=== PATIENT | male | born 1950 | race Caucasian/White ===

== ENCOUNTER → 2023-07-06 | Outpatient (CLI) | payer MEDICARE ==
[2023-07-06 16:58] LABS: INR 0.9 (<1.2); Partial Thromboplastin Time 25.4 sec (22.0-30.0)
[2023-07-07 03:23] LABS: HCT 50.9 % (39.6-50.0); HGB 16.2 g/dL (13.0-17.0); MCH 29.9 pg (27.0-32.0); MCHC 31.8 g/dL (32.0-37.0); MCV 94.1 FL (80.0-97.0); Mean Platelet Volume 10.7 FL (9.5-12.2); NRBC Per 100 WBC 0 X 10*3/uL (0.00-0.01); Platelet Count 219 X 10*3/uL (140-440); RBC 5.41 X 10*6/uL (4.40-5.60); RDW 13.4 % (11.5-14.5); WBC 7.07 X 10*3/uL (4.50-10.00)
[2023-07-07 03:37] LABS: ALT 27 U/L (10-49); AST 23 U/L (14-35); Albumin 4.6 g/dL (3.8-4.9); Albumin/Globulin Ratio 1.84 Ratio (1.60-3.17); Alkaline Phosphatase 78 U/L (41-126); BUN/Creat Ratio 15.44 Ratio (12.00-20.00); Blood Urea Nitrogen 13.9 mg/dL (9.0-27.0); Calcium 9.3 mg/dL (8.7-10.3); Carbon Dioxide 24.4 mmol/L (21.6-31.8); Chloride 105 mmol/L (96-109); Globulin 2.5 g/dL (1.6-3.3); Glucose 75 mg/dL (70-110); Potassium 4.4 mmol/L (3.5-5.5); Sodium 142 mmol/L (135-145); Total Bilirubin 0.7 mg/dL (0.3-1.2); Total Protein 7.1 g/dL (6.2-8.2)
== END | disposition home or self-care (01) ==
LOC: LABPAT 16:01
PROVIDERS: ATTEND Orthopaedic Surgery
DX: Z01.818 Encounter for other preprocedural examination (principal); M17.12 Unilateral primary osteoarthritis, left knee; E11.9 Type 2 diabetes mellitus without complications; Z22.322 Carrier or suspected carrier of Methicillin resistant Staphylococcus aureus
CPT/HCPCS: 36415; 80053; 83036; 85027; 85610; 85730; 87070; 93005

== ENCOUNTER 2023-07-30 05:42 | Day surgery (SDC) | payer MEDICARE ==
[2023-07-29 15:17] VITALS: BMI 39.5
[~2023-07-30 05:42] MED LIST: LIDOCAINE 1% (10MG/ML) FOR IV START INTRADERMA PRN; Pre Op ABX Message 1 EACH MISC MISCELLANE ONE
[2023-07-30] MEDS ORDERED: TRANEXAMIC 1,000 MG/100ML-NACL 1,000 MG in SALINE 1 100ML.BAG IV PRN (06:00)
[2023-07-30] MEDS ORDERED: TRANEXAMIC 1,000 MG/100ML-NACL 1,000 MG in SALINE 1 100ML.BAG IVPB PRN (06:00)
[2023-07-30] MEDS: DOCUSATE 100 MG CAP PO PRN (06:35)
[2023-07-30] MEDS: oxyCODONE ER 10 MG TAB.ER.12H PO PRN (06:35)
[2023-07-30] MEDS: LACTATED RINGERS 1,000 ML IV SCH ×2 (06:48→15:11)
[2023-07-30] MEDS: KETOROLAC 15 MG/ML 1 ML VIAL IVP PRN (06:49)
[2023-07-30] MEDS: FAMOTIDINE 20 MG/2 ML VIAL IVP PRN (06:49)
[2023-07-30] MEDS: DEXAMETHASONE SOD PHOSPHATE 10 MG/ML 1 ML VIAL IV PRN (06:50)
[2023-07-30] MEDS: ONDANSETRON 4 MG/2 ML VIAL IVP PRN ×2 (06:50→15:37)
[2023-07-30] MEDS: MIDAZOLAM 2 MG/2 ML VIAL IV PRN (06:58)
[2023-07-30] MEDS ORDERED: HYDROmorphone 0.5 MG/0.5 ML SYRINGE IVP PRN ×4 (07:00→10:54)
[2023-07-30] MEDS ORDERED: fentaNYL (PF) 50 MCG/ML 2 ML AMP IV PRN (07:00)
[2023-07-30] MEDS: ACETAMINOPHEN TAB 500 MG TAB PO PRN (07:24)
[2023-07-30] MEDS: IV FLUID CONTINUATION 1,000 ML IV ONE ×2 (07:30→15:12)
[2023-07-30] MEDS ORDERED: ROPIVACAINE 5 MG/ML 30 ML VIAL ONE (07:49)
[2023-07-30] MEDS ORDERED: SUCCINYLCHOLINE CHLORIDE 200 MG/10 ML VIAL IV ONE (07:49)
[2023-07-30] MEDS ORDERED: DEXAMETHASONE SOD PHOSPHATE 4 MG/ML 1 ML VIAL ONE (07:49)
[2023-07-30] MEDS ORDERED: MIDAZOLAM 2 MG/2 ML VIAL ONE (07:49)
[2023-07-30] MEDS ORDERED: LIDOCAINE 1% INJ 10MG/ML (20 ML MDV) ONE (07:49)
[2023-07-30] MEDS ORDERED: PROPOFOL 10 MG/ML 20 ML VIAL IV ONE (07:49)
[2023-07-30] MEDS ORDERED: fentaNYL (PF) 50 MCG/ML 2 ML AMP ONE (07:49)
[2023-07-30] MEDS ORDERED: NEOSTIGMINE 1 MG/ML 10 ML VIAL ONE (07:49)
[2023-07-30] MEDS ORDERED: SODIUM CHLORIDE 0.9% (PF) 10 ML VIAL ONE (07:49)
[2023-07-30] MEDS ORDERED: TRANEXAMIC 1,000 MG/100ML-NACL PREMIX BAG ONE (07:49)
[2023-07-30] MEDS ORDERED: GLYCOPYRROLATE 0.2 MG/ML 2 ML VIAL ONE (07:49)
[2023-07-30] MEDS ORDERED: ROCURONIUM 10 MG/ML (5 ML VIAL) IV ONE (07:49)
[2023-07-30] MEDS: ROPIVACAINE/EPI/CLONIDINE/KET 50 ML SYRINGE MISCELLANE PRN (08:25)
--- NOTE | 2023-07-30 09:52 | P.OP ---
Date of Procedure: 07/30/23 Preoperative Diagnosis: 1. severe left knee osteoarthritis Postoperative Diagnosis: same Procedure(s) Performed: 1. Left total knee arthroplasty 2. Computer assisted musculoskeletal navigation using CT/MRI images Implants: 1. [place] [employer] CR Femur Size #7 2. [place] [employer] [place] Tibial Base Size #6 3. [place] [employer] CS/PS poly Size #6, 9-mm 4. [place] [employer] all poly patella, Size #35 Anesthesia: ALBERTINA, regional Surgeon: Derian Brandt Lining Mechanic #1: Christiano Antony Lining Mechanic #2: Yadira Ramirez IV fluids (ml): 1,000 Urine output (ml): 100 Pathology: none sent Condition: stable Disposition: PACU Indications for Procedure: the patient is a very pleasant 72-year-old male who I been seeing since February with severe left knee pain. His x-rays showed moderate arthritis but due to the severity of his pain an MRI was obtained. The MRI showed a displaced meniscus tear and severe cartilage loss in the medial femoral condyle with a large effusion and ultimately the loose bodies. Initially the patient requested an arthroscopy due to the acute onset of pain and meniscus tear. Due to the condition of the cartilage on the medial femoral condyle, the patient's age, and the patient's BMI of 38.5 by recommendation was that a total knee replacement would be more predictable for pain relief. After careful consideration the patient agreed to proceed with a total knee replacement. I met with the patient preoperatively in the office setting and discussed treatment of their symptomatic knee arthritis. They failed a long course of nonsurgical treatment and elected to proceed with an elective total knee replacement. I discussed the potential risks and complications at length and gave them ample time to ask questions. Risks discussed included: risks from anesthesia, superficial site surgical infection, acute and/or chronic periprosthetic joint infection, delayed wound healing, drainage, wound necrosis, instability, stiffness, stiffness requiring manipulation and/or revision surgery, damage to local blood vessels or nerves, aseptic loosening of the implants, extensor mechanism issues including disruption, patellar maltracking, avascular necrosis etc., continued or worsened knee pain, generalized dissatisfaction with surgical outcome, need for revision surgery, an inability to regain preinjury level of function, DVT, PE, other medical complications, and possibly loss of life or limb. The patient voiced their understanding that while these are the most common complications other less common complications are possible. They provided both their verbal and written consent to go forward with surgery. Operative Findings: There was severe full-thickness cartilage loss on the medial femoral condyle with exposed subchondral bone and multiple loose cartilaginous bodies within the joint. There was a large clear effusion. There was moderate cartilage loss in the patellofemoral and lateral compartments. Description of Procedure: The patient was identified in preoperative holding and the correct operative extremity was verified and marked with a marker. I reviewed the consent form with the patient at length. All of their questions were answered. The patient was given a block by anesthesia. They were then brought back to the operating room. They were transferred onto the operating room table where a general anesthetic, preoperative antibiotics, and tranexamic acid were administered by anesthesia. A tourniquet was applied to the proximal aspect of the operative extremity. The contralateral extremity was padded under the heel and secured to the operating room table with a nonsterile blue towel and tape. The ipsilateral arm was carefully draped across the patient's chest and secured with a pillow and foam. A post was applied over the lateral aspect of the ipsilateral thigh and a bolster was placed under the ipsilateral foot. I verified that the operative extremity was stable and the knee was flexed to 90. The operative extremity was then placed in a leg brown, nonsterile drapes were applied, and the extremity was prepped and draped sterilely in the standard sterile fashion. Prior to starting surgery timeout was performed identifying the correct patient, operative extremity, and procedure. The leg was then elevated, exsanguinated with an Esmarch bandage, and the tourniquet was inflated. An anterior midline incision was made sharply with a scalpel. Once I had dissected deep to the superficial fascial layer medial and lateral flaps were elevated. A medial parapatellar arthrotomy was created. Upon opening the knee joint there were diffuse arthritic changes in all 3 compartments. The anterior horn of the medial meniscus were sharply released and a medial release was performed around the posterior medial corner of the knee to facilitate retractor placement. The fat pad was excised with electrocautery. The patella was found to be severely arthritic and a provisional cut was made with a sagittal saw to facilitate mobilization of the extensor mechanism during the procedure. Remnants of the ACL and PCL were then excised from the notch. 4 mm pins were then placed within the incision in the medial distal femur and proximal tibia. Arrays were applied to the pins and I verified they were completely tightened. The knee was then registered with the [employer] robot and manipulations in implant position were made to balance the knee and opitmize implant position. Using the José Miguel robotic saw all cuts were made in accordance with our plan. After all bony fragments had been removed the cuts were verified with the planar probe. The tibia was then subluxed forward and sized. The knee was brought into flexion and a lamina human resources services specialist was placed to allow removal of the meniscal remnants both medially and laterally as well as posterior osteophytes. Local anesthetic was then infiltrated around the joint capsule. Trial implants were then placed within the knee. Range of motion and collateral ligament tension was then evaluated. Adjustments in implant size and position were then made accordingly. Once the knee was felt to be appropriately balanced the José Miguel pins were removed. The patella was then recut, sized, and punched. A trial patellar button was then placed. With the trial components in place, the patella tracked midline. The femur was then drilled and the trial component removed. The trial tibial component was then appropriately rotated, pinned, and prepared for the keel. All trial components were then removed from the knee. The knee was thoroughly irrigated with pulsatile lavage. Cement was prepared via vacuum mixing in a bowl on the back table. I then hand pressurized cement into the femur and tibia and placed the implants beginning with the tibial base tray and poly liner, femoral component, and finally the patellar button. All extruded cement was removed including from the pin sites. Once the cement had hardened the knee was evaluated one final time with the final polyethylene liner in place. The knee had full extension and flexion and felt stable to varus and valgus stress throughout the arc of motion. The tourniquet was released and with the tourniquet down the patella tracked midline. All bleeders were controlled with electrocautery. The knee was then soaked for 3 minutes with a dilute Betadine soak. The knee was thoroughly irrigated using 3 L of sterile saline and pulsatile lavage. The extensor mechanism was then reapproximated using pop off Vicryl sutures followed by a running barbed suture. The knee was then closed in layers with a 0 strata fix for the deep fascial layer, 2-0 strata fix for the superficial subcutaneous layer and Monocryl and Steri-Strips for the skin. A sterile dressing was applied. I verified that all instrument, sponge, and sharp counts were correct. The patient was then transferred off the operating room table, extubated, and brought to recovery having tolerated the procedure well. Christiano Antony PA-C was required as a skilled food and beverage assistant due to the complexity of surgery for patient positioning, draping, exposure, closure of wound, and application of dressing. PLAN: The patient can weight-bear as tolerated on the operative extremity. DVT prophylaxis with aspirin 81 mg twice a day based on preoperative risk stratification. Internal medicine for perioperative medical management. 2 doses of post-operative antibiotics. Physical therapy for gait training. Follow-up in the office in 2 weeks for wound check and x-rays of the knee including an AP and lateral.
--- NOTE | 2023-07-30 10:03 | P.ANPRN ---
Procedure Note - Anesthesia - Nerve Block Performed Left Adductor Canal Single Time Out Performed: Yes ([id number]) Date of Procedure: 07/30/23 Location of Patient: PreOp Indication: Acute Post-Operative Pain, Analgesia, Dx/Pain Location (Left Knee), Requested by Surgeon Specifically requested for management of pain by Dr.: Derian Brandt Sedation Type: Sedate with meaningful contact maintained Preparation: Sterile Prep Position: Supine Catheter: None Needle Types: Pajunk Needle Gauge: 21 Ultrasound used to visualize needle placement: Yes Ultrasound used to observe medication spread: Yes Injectate: 0.5% Ropivacaine (see comment for volume) (20 cc + 10 cc of Normal saline + 4mg of decadron) Blood Aspirated: No Pain Paresthesia on Injection Noted: No Resistance on Injection: Normal Image Stored and Saved: Yes Events: Uneventful and Well Tolerated Left iPack Single Time Out Performed: Yes Location of Patient: PreOp Indication: Acute Post-Operative Pain, Analgesia, Dx/Pain Location, Requested by Surgeon Specifically requested for management of pain by DrTrista: Derian Brandt Sedation Type: Sedate with meaningful contact maintained Preparation: Sterile Prep Position: Right Lateral Catheter: None Needle Types: Pajunk Needle Gauge: 21 Ultrasound used to visualize needle placement: Yes Ultrasound used to observe medication spread: Yes Injectate: 0.5% Ropivacaine (see comment for volume) (20 cc + 10 cc of Normal saline) Blood Aspirated: No Pain Paresthesia on Injection Noted: No Resistance on Injection: Normal Image Stored and Saved: Yes Events: Uneventful and Well Tolerated
[2023-07-30] MEDS ORDERED: MAGNESIUM HYDROXIDE 2,400 MG/30 ML CUP PO PRN (10:54)
[2023-07-30] MEDS ORDERED: HYDROcodone/APAP 7.5-325MG 1 EACH TAB PO PRN (10:54)
[2023-07-30] MEDS ORDERED: NALOXONE 0.4 MG/ML 1 ML VIAL IV PRN (10:54)
[2023-07-30] MEDS ORDERED: bisacodyL 10 MG SUPP RECTAL PRN (10:54)
[2023-07-30] MEDS ORDERED: NA PHOS,M-B/NA PHOS,DI-BA 133 ML ENEMA RECTAL PRN (10:54)
--- NOTE | 2023-07-30 14:37 | XR ---
EXAMINATION TYPE: XR knee limited 2 views LT DATE OF EXAM: 07/30/2023 COMPARISON: NONE CLINICAL INDICATION: Male, 72 years old with history of Evaluation for Postop abnormality and alignme nt; FINDINGS: Images show placement of left total knee arthroplasty. Distal femoral and proximal tibial components of the prosthesis are well seated without periprosthetic fracture. Alignment grossly anatomic. Anteri or soft tissue swelling with scattered soft tissue air as well as some intra-articular air related to recent operation. IMPRESSION: Uncomplicated postoperative appearance left total knee arthroplasty.
[2023-07-30] MEDS: DEXAMETHASONE SOD PHOSPHATE 4 MG/ML 1 ML VIAL IV ONE (16:09)
[2023-07-30] MEDS: ONDANSETRON 4 MG/2 ML VIAL IVP ONE (16:09)
[2023-07-30] MEDS: SENNOSIDES-DOCUSATE SODIUM 1 EACH TAB PO SCH (20:49)
[2023-07-30] MEDS: ASPIRIN 81 MG PO SCH (20:49)
--- NOTE | 2023-07-30 21:12 | P.CONS ---
History of Present Illness - Reason for Consult Consult date: 07/30/23 Medical management Requesting physician: Derian Brandt - Chief Complaint Left knee surgery - History of Present Illness This is a pleasant 72-year-old patient who follows with Dr. DE LA CRUZ. Chronic stable medical conditions. Obstructive sleep apnea uses CPAP, arthritis and some other joints. Patient has undergone left total knee arthroplasty having failed outpatient conservative management. Has postoperatively pain controlled. No nausea vomiting. Patient also has a history of esophageal stricture for which she takes peppermint oil. With relief from the same. 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 . Ex-smoker. Physical examination: VITAL SIGNS: 97.4, 67, 16, 159 x 88, 95% on room air GENERAL: BMI 38.5, reclining bed awake comfortable. EYES: Pupils equal. Conjunctiva rachid l. HEENT: External appearance of nose and ears normal, oral cavity grossly normal. NECK: JVD not raised; masses not palpable. HEART: First and second heart sounds are normal; no edema. LUNGS: Respiratory rate normal; some decrease in breath sounds. ABDOMEN: Soft, nontender, liver spleen not palpable, no masses palpable. PSYCH: Alert and oriented x3; mood and affect rachid l. MUSCULOSKELETAL:No Clubbing/cyanosis;muscles-grossly intact. Dressing over the left knee incision site NEUROLOGICAL: Cranial nerves grossly intact; no facial asymmetry, power and sensation grossly intact. LYMPHATICS: No lymph nodes palpable in the axilla and neck INVESTIGATIONS, reviewed in the clinical context: July 06, 2023: White count 7 hemoglobin 16.2 platelets 219 sodium 142 potassium 4.4 creatinine 0.9 hemoglobin A1c 6 Assessment plan -Left total knee arthroplasty Aspirin for DVT prophylaxis. Cefazolin for infection prophylaxis. Pain control -Primary osteoarthritis Tylenol as needed -Obstructive sleep apnea uses CPAP -Esophageal stricture for which patient uses peppermint oil. -Obesity BMI 38.5 Weight loss measures Care was discussed with the patient. Questions answered. Thank you Dr. 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 no problems with prior blood transfusion Smoking Status: Former smoker - Past Family History Mother Family Medical History: CVA/TIA Medications and Allergies Home Medications Medication Instructions Recorded Confirmed Type Acetaminophen [Tylenol Extra 500 - 1,000 mg PO Q6H PRN 07/29/23 07/30/23 History Strength] Fluticasone Nasal [place] [Flonase 1 spray EA NOSTRIL DAILY PRN 07/29/23 07/30/23 History Nasal [place]] Sulindac [Clinoril] 200 mg PO BID PRN 07/29/23 07/30/23 History Aspirin 81 mg PO BID #60 tab 07/30/23 Rx Diclofenac Sodium [Voltaren] 75 mg PO BID #60 tab 07/30/23 Rx Docusate [Colace] 100 mg PO BID #60 capsule 07/30/23 Rx HYDROcodone/APAP 7.5-325MG [[place] 1 each PO Q6HR PRN #32 tab 07/30/23 Rx 7.5-325] Omeprazole 20 mg PO DAILY #30 tab 07/30/23 Rx Ondansetron [Zofran] 4 mg PO Q6HR PRN #30 tab 07/30/23 Rx Allergies Allergy/AdvReac Type Severity Reaction Status Date / Time doxycycline Allergy facial Verified 07/30/23 06:31 swelling Physical Exam Vitals: Vital Signs Temp Pulse Resp BP Pulse Ox 07/30/23 15:46 97.4 F L 67 159/88 95 07/30/23 15:00 77 16 144/75 96 07/30/23 14:30 55 L 16 136/73 94 L 07/30/23 13:30 58 L 16 141/83 97 07/30/23 13:00 64 16 139/70 94 L 07/30/23 12:30 97.2 F L 66 16 124/78 94 L 07/30/23 12:00 75 16 126/73 95 07/30/23 11:34 81 16 135/75 97 07/30/23 11:18 84 16 149/83 96 07/30/23 11:03 82 16 156/77 97 07/30/23 10:48 97.2 F L 91 16 158/72 99 07/30/23 07:15 68 18 128/56 97 07/30/23 06:40 98.0 F 74 18 150/83 96 Intake and Output 07/30/23 07/30/23 07/30/23 06:59 14:59 22:59 Intake Total 750 780 Output Total 100 Balance 650 780 Intake: IV 750 300 Oral 480 Output: Estimated Blood Loss 100 Other: Weight 115 kg 115 kg 115 kg
[2023-07-30] MEDS: CALCIUM CARBONATE 500 MG CHEWABLE PO STA (23:31)
[2023-07-31] MEDS: HYDROcodone/APAP 5-325MG 1 EACH TAB PO PRN (02:09)
[2023-07-31 02:43] VITALS: RESP 18
--- NOTE | 2023-07-31 06:50 | P.DS ---
Providers Date of admission: 07/30/2023 Attending physician: Derian Brandt Consults: 07/30/23 11:03 Consult Physician Routine Consulting Provider: Javan Elias Consult Reason/Comments: Medical management Do you want consulting provider notified?: Yes [facility] Course: The patient is very pleasant 72-year-old male who was admitted and underwent a l eft total knee replacement yesterday.Following an uncomplicated surgery and was transferred to the orthopedic floor. He was seen by internal medicine. He received 2 doses postoperative antibiotics. He was started on aspirin for DVT prophylaxis. He was seen on postoperative day #1 and was doing well. His dressing was intact. Femoral and sciatic nerve function were intact. There is mild swelling. He worked with physical therapy and ultimately was cleared for discharge home. Plan - Discharge Summary Discharge Rx Participant: No New Discharge Prescriptions: New Aspirin 81 mg PO BID #60 tab HYDROcodone/APAP 7.5-325MG [[place] 7.5-325] 1 each PO Q6HR PRN #32 tab PRN Reason: Pain Diclofenac Sodium [Voltaren] 75 mg PO BID #60 tab Ondansetron [Zofran] 4 mg PO Q6HR PRN #30 tab PRN Reason: Nausea Docusate [Colace] 100 mg PO BID #60 capsule Omeprazole 20 mg PO DAILY #30 tab No Action Sulindac [[place]] 200 mg PO BID PRN PRN Reason: Pain Acetaminophen [Tylenol Extra Strength] 500 - 1,000 mg PO Q6H PRN PRN Reason: Pain Fluticasone Nasal [place] [Flonase Nasal [place]] 1 spray EA NOSTRIL DAILY PRN PRN Reason: allergies Discharge Medication List Acetaminophen [Tylenol Extra Strength] 500 - 1,000 mg PO Q6H PRN 07/29/23 [Hist ory] Fluticasone Nasal [place] [Flonase Nasal [place]] 1 spray EA NOSTRIL DAILY PRN 07/29/23 [History] Sulindac [[place]] 200 mg PO BID PRN 07/29/23 [History] Aspirin 81 mg PO BID #60 tab 07/30/23 [Rx] Diclofenac Sodium [Voltaren] 75 mg PO BID #60 tab 07/30/23 [Rx] Docusate [Colace] 100 mg PO BID #60 capsule 07/30/23 [Rx] HYDROcodone/APAP 7.5-325MG [[place] 7.5-325] 1 each PO Q6HR PRN #32 tab 07/30/23 [Rx] Omeprazole 20 mg PO DAILY #30 tab 07/30/23 [Rx] Ondansetron [Zofran] 4 mg PO Q6HR PRN #30 tab 07/30/23 [Rx] Follow up Appointment(s)/Referral(s): Derian Brandt MD [Medical Doctor] - 2 Weeks Activity/Diet/Wound Care/Special Instructions: 1. Weight-bear as tolerated on your operative extremity unless instructed otherwise. Use a walker or other assistive device to ambulate. 2. Leave surgical dressing in place. If your dressing becomes saturated with blood, there is drainage, or the dressing becomes loose please contact the offi ce. 3. It is okay to shower with your surgical dressing, but do not submerge in water (no hot tubs, bath's, swimming etc.) 4. Make sure to take her blood clot prevention medication as prescribed (a spirin, Eliquis, Xarelto, and Plavix are commonly prescribed medications for blood clot prevention) 5. While taking [place] or Percocet for pain make sure you're taking a stool softener (Colace) and drink lots of water. 6. Keep all follow-up appointments as scheduled. You will usually be seen in 1-2 weeks following surgery. 7. Please contact the office with any questions or concerns [phone] Discharge Disposition: HOME WITH HOME HEALTH SERVICES
[2023-07-31 08:05] VITALS: BP 117/73; PULSE 76; TEMP 97.9
[2023-07-31] MEDS: FAMOTIDINE 20 MG TAB PO SCH (08:18)
[2023-07-31 10:01] LABS: Basophils # (A) 0.03 X 10*3/uL (0.00-0.10); Basophils % (A) 0.2 %; Eosinophils # (A) 0 X 10*3/uL (0.04-0.35); Eosinophils % (A) 0 %; HCT 41.6 % (39.6-50.0); HGB 13.5 g/dL (13.0-17.0); Lymphocytes # (A) 1.29 X 10*3/uL (0.90-5.00); Lymphocytes % (A) 7.2 %; MCH 30.1 pg (27.0-32.0); MCHC 32.5 g/dL (32.0-37.0); MCV 92.7 FL (80.0-97.0); Mean Platelet Volume 10.5 FL (9.5-12.2); Monocytes # (A) 1.24 X 10*3/uL (0.20-1.00); Monocytes % (A) 6.9 %; NRBC Per 100 WBC 0 X 10*3/uL (0.00-0.01); Neutrophils # (A) 15.37 X 10*3/uL (1.80-7.70); Neutrophils % (A) 85.2 %; Platelet Count 196 X 10*3/uL (140-440); RBC 4.49 X 10*6/uL (4.40-5.60); RDW 12.9 % (11.5-14.5); WBC 18.02 X 10*3/uL (4.50-10.00)
--- NOTE | 2023-07-31 21:27 | P.PN ---
Progress Note - Text Progress Note Date: 07/31/23 - Chief Complaint Left knee surgery - History of Present Illness This is a pleasant 72-year-old patient who follows with Dr. DE LA CRUZ. Chronic stable medical conditions. Obstructive sleep apnea uses CPAP, arthritis and some other joints. Patient has undergone left total knee arthroplasty having failed outpatient conservative management. Has postoperatively pain controlled. No nausea vomiting. Patient also has a history of esophageal stricture for which she takes peppermint oil. With relief from the same. No cardiac history July 30: Doing well. Some pain at operative site. Breathing stable. Did ambulate. Medications discussed. at the bedside. Denies any respiratory urinary symptoms. 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 . Ex-smoker. Physical examination: VITAL SIGNS: 97.7, 9076, 18, 1 one 7 x 73, 96% room air GENERAL: Up in chair comfortable EYES: Pupils equal. Conjunctiva rachid l. HEENT: External appearance of nose and ears normal, oral cavity grossly normal. NECK: JVD not raised; masses not palpable. HEART: First and second heart sounds are normal; no edema. LUNGS: Respiratory rate normal; some decrease in breath sounds. ABDOMEN: Soft, nontender, liver spleen not palpable, no masses palpable. PSYCH: Alert and oriented x3; mood and affect rachid l. MUSCULOSKELETAL:No Clubbing/cyanosis;muscles-grossly intact. Dressing over the left knee incision site NEUROLOGICAL: Cranial nerves grossly intact; no facial asymmetry, power and sensation grossly intact. INVESTIGATIONS, reviewed in the clinical context: July 31, 2023: White count 18 hemoglobin 13.5 platelets 196 July 06, 2023: White count 7 hemoglobin 16.2 platelets 219 sodium 142 potassium 4.4 creatinine 0.9 hemoglobin A1c 6 Assessment plan -Left total knee arthroplasty Aspirin for DVT prophylaxis. Cefazolin for infection prophylaxis. Pain control -Primary osteoarthritis Tylenol as needed -Obstructive sleep apnea uses CPAP -Reactive leukocytosis from surgery No clinical evidence of infection -Esophageal stricture for which patient uses peppermint oil. -Obesity BMI 38.5 Weight loss measures Discussed. Follow-up with PCP Thank you Dr. 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 no problems with prior blood transfusion Smoking Status: Former smoker
== END 2023-07-31 12:24 | disposition home health service (06) ==
LOC: OR 05:42 → 4SSUR 10:41 → OR 07-31 12:24
PROVIDERS: ATTEND Orthopaedic Surgery
DX: S83.242A Other tear of medial meniscus, current injury, left knee, initial encounter (principal); M17.12 Unilateral primary osteoarthritis, left knee; G89.18 Other acute postprocedural pain; G47.33 Obstructive sleep apnea (adult) (pediatric); E66.9 Obesity, unspecified; D72.829 Elevated white blood cell count, unspecified; Z68.38 Body mass index [BMI] 38.0-38.9, adult; Z79.82 Long term (current) use of aspirin; Z79.899 Other long term (current) drug therapy; Z87.891 Personal history of nicotine dependence; X58.XXXA Exposure to other specified factors, initial encounter
CPT/HCPCS: 0055T; 27447; 64999; 85025